=== PATIENT | male | born 1985 | race Caucasian/White ===

== ENCOUNTER → 2019-12-27 | Outpatient (CLI) | payer OTHER ==
--- NOTE | 2020-01-15 07:25 | REP ---
BILATERAL KNEE SERIES: CLINICAL: Pain. TECHNIQUE: AP, lateral, bilateral oblique and sunrise views of the right and left knee. FINDINGS: Osseous structures, joint spaces and surrounding soft tissues are relatively symmetric and essentially age appropriate. No evidence for acute or healed fracture to either knee. No significant osteoarthritic or inflammatory arthritic changes are appreciated. Surrounding soft tissues are unremarkable and there is no evidence for effusion bilaterally. IMPRESSION: Relatively age appropriate symmetric normal bilateral knee radiograph series. No significant osteoarthritic changes are appreciated. No evidence for acute or healed injury identified. MTDD
== END ==
LOC: M WUC 09:30
PROVIDERS: ATTEND Nurse Practitioner Adult Health
DX: M25.561 Pain in right knee (principal); M25.562 Pain in left knee

== ENCOUNTER → 2023-07-30 | Outpatient (CLI) | payer OTHER | LOC: M WUC 11:09 | PROVIDERS: ATTEND Student in an Organized Health Care Education/Training Program | DX: M54.50 Low back pain, unspecified (principal) ==